=== PATIENT | male | born 1970 | race Caucasian/White ===

== ENCOUNTER 2020-09-06 06:44 | Inpatient (IN) ==
[2020-09-06] MEDS ORDERED: Aspirin 81 MG TAB.CHEW PO ONE (06:49)
[2020-09-06 07:10] LABS: Basophils % 0.4 %; Eosinophils # 0.2 K/mcL (0.0-0.6); Eosinophils % 1.9 %; Hematocrit 43.6 % (37.5-50.1); Hemoglobin 13.8 g/dL (12.9-16.9); Immature Granulocytes % 0.3 % (0-4); Lymphocytes % 25.7 %; Mean Corpuscular HGB Conc 31.7 g/dL (31.6-35.5); Mean Corpuscular Hemoglobin 26.5 pg (28.0-33.3); Mean Corpuscular Volume 83.8 fL (83.0-100.0); Mean Platelet Volume 8.7 fL (9.4-12.4); Monocytes # 0.6 K/mcL (0.0-1.3); Monocytes % 8.3 %; Neutrophils # 4.9 K/mcL (1.6-8.9); Platelet Count 337 K/mcL (140-400); Red Cell Distribution Width 13.4 % (11.5-14.5); Segmented Neutrophils % 63.4 %; White Blood Count 7.8 K/mcL (4.3-11.1)
[2020-09-06 07:17] LABS: INR 1.1; Prothrombin Time 12.4 Seconds (9.4-12.1)
[2020-09-06 07:39] LABS: BUN/Creatinine Ratio 13 (6-26); Blood Urea Nitrogen 14 mg/dL (6-20); Calcium 8.7 mg/dL (8.6-10.3); Carbon Dioxide 26 mEq/L (23-29); Chloride 105 mEq/L (98-107); Glucose 129 mg/dL (70-105); Osmolality,Calculated 286 (280-300); Potassium 3.6 mEq/L (3.5-5.1); Sodium 137 mEq/L (136-145); Troponin I 0.22 ng/mL (< 0.04); eGFR For African Americans > 60 (> 60); eGFR For Non-African Americans > 60 (> 60)
[2020-09-06] MEDS ORDERED: *HR* Heparin 5,000 UNIT/ML VIAL IVP PRN ×2 (07:44)
[2020-09-06] MEDS ORDERED: *HR* Heparin 5,000 UNIT/ML VIAL IVP ONE (07:44)
[2020-09-06] MEDS ORDERED: Naloxone 0.4 MG/ML INJ IVP PRN (08:04)
[2020-09-06] MEDS ORDERED: Ondansetron 4 MG/2 ML VIAL IVP PRN (08:04)
[2020-09-06] MEDS ORDERED: Perflutren Lipid Microsphere 1.3 ML in 0.9 % Sodium Chloride 8.7 ML IVP PRN (08:08)
[2020-09-06] MEDS: Heparin 25,000UNIT/250ML 1/2NS 25,000 UNIT/250 ML IV.SOLN IVC SCH (08:19)
[2020-09-06] MEDS ORDERED: *HR* Labetalol 20 MG/4 ML SYRINGE IVP PRN (08:38)
[2020-09-06] MEDS ORDERED: Propranolol LA (24 HR) 60 MG CAP.SA.24H PO SCH (10:15)
[2020-09-06] MEDS ORDERED: Valsartan 80 MG TABLET PO SCH (10:15)
[2020-09-06] MEDS: Aspirin 81 MG TAB.CHEW PO SCH (11:40)
[2020-09-06] MEDS ORDERED: RIZATRIPTAN BENZOATE 10 MG PO PRN (11:41)
[2020-09-06] MEDS: Valsartan 80 MG TABLET PO SCH ×2 (11:49→21:18)
[2020-09-06] MEDS: Simethicone 80 MG TAB.CHEW PO PRN (12:35)
[2020-09-06] MEDS: Acetaminophen 325 MG TABLET PO PRN (21:18)
[2020-09-06] MEDS: Fluticasone Propionate Nasal 50 MCG/SPRAY BOTTLE NS SCH (21:20)
[2020-09-07] MEDS: Heparin 25,000UNIT/250ML 1/2NS 25,000 UNIT/250 ML IV.SOLN IVC SCH ×2 (01:53→21:01)
[2020-09-07 03:19] LABS: Basophils % 0.4 %; Eosinophils # 0.1 K/mcL (0.0-0.6); Eosinophils % 0.9 %; Hematocrit 43.5 % (37.5-50.1); Hemoglobin 13.8 g/dL (12.9-16.9); Immature Granulocytes % 0.4 % (0-4); Lymphocytes # 1.7 K/mcL (0.6-4.6); Lymphocytes % 25.5 %; Mean Corpuscular HGB Conc 31.7 g/dL (31.6-35.5); Mean Corpuscular Hemoglobin 26.4 pg (28.0-33.3); Mean Corpuscular Volume 83.3 fL (83.0-100.0); Mean Platelet Volume 8.5 fL (9.4-12.4); Monocytes # 0.4 K/mcL (0.0-1.3); Monocytes % 5.9 %; Neutrophils # 4.5 K/mcL (1.6-8.9); Platelet Count 286 K/mcL (140-400); Red Blood Count 5.22 M/mcL (4.19-5.50); Red Cell Distribution Width 13.5 % (11.5-14.5); Segmented Neutrophils % 66.9 %; White Blood Count 6.8 K/mcL (4.3-11.1)
[2020-09-07 03:42] LABS: BUN/Creatinine Ratio 13 (6-26); Blood Urea Nitrogen 14 mg/dL (6-20); Calcium 8.9 mg/dL (8.6-10.3); Carbon Dioxide 27 mEq/L (23-29); Chloride 103 mEq/L (98-107); Chol/HDL Ratio 4.6 (0-4.9); Cholesterol 181 mg/dL (< 200); Glucose 113 mg/dL (70-105); HDL Cholesterol 39 mg/dL (40-59); LDL Cholesterol,Calculated 112 mg/dL (< 100); Magnesium 1.9 mg/dL (1.6-2.6); Osmolality,Calculated 285 (280-300); Potassium 3.7 mEq/L (3.5-5.1); Sodium 137 mEq/L (136-145); Triglycerides 152 mg/dL (< 150); eGFR For African Americans > 60 (> 60); eGFR For Non-African Americans > 60 (> 60)
[2020-09-07 05:18] LABS: Estimated Average Glucose 146 mg/dl; Hemoglobin A1C 6.7 %
[2020-09-07] MEDS: Valsartan 80 MG TABLET PO SCH ×2 (08:06→21:01)
[2020-09-07] MEDS: Aspirin 81 MG TAB.CHEW PO SCH (08:06)
[2020-09-07] MEDS: Fluticasone Propionate Nasal 50 MCG/SPRAY BOTTLE NS SCH ×2 (08:07→21:03)
[2020-09-07] MEDS: Simethicone 80 MG TAB.CHEW PO PRN ×3 (08:14→17:28)
[2020-09-07] MEDS: carvediloL 6.25 MG TABLET PO SCH ×2 (10:39→17:28)
[2020-09-08] MEDS: Acetaminophen 325 MG TABLET PO PRN (04:37)
[2020-09-08 05:44] LABS: Hemoglobin 14.4 g/dL (12.9-16.9); Mean Corpuscular HGB Conc 31.3 g/dL (31.6-35.5); Mean Corpuscular Hemoglobin 26.3 pg (28.0-33.3); Mean Corpuscular Volume 83.9 fL (83.0-100.0); Mean Platelet Volume 9.5 fL (9.4-12.4); Platelet Count 335 K/mcL (140-400); Red Blood Count 5.48 M/mcL (4.19-5.50); Red Cell Distribution Width 13.7 % (11.5-14.5); White Blood Count 9.3 K/mcL (4.3-11.1)
[2020-09-08 06:10] LABS: BUN/Creatinine Ratio 13 (6-26); Blood Urea Nitrogen 14 mg/dL (6-20); Calcium 9.1 mg/dL (8.6-10.3); Carbon Dioxide 27 mEq/L (23-29); Chloride 100 mEq/L (98-107); Glucose 128 mg/dL (70-105); Osmolality,Calculated 286 (280-300); Potassium 3.4 mEq/L (3.5-5.1); Sodium 137 mEq/L (136-145); eGFR For African Americans > 60 (> 60); eGFR For Non-African Americans > 60 (> 60)
[2020-09-08] MEDS: Aspirin 81 MG TAB.CHEW PO SCH (07:56)
[2020-09-08] MEDS: carvediloL 6.25 MG TABLET PO SCH ×2 (07:56→17:32)
[2020-09-08] MEDS: Valsartan 80 MG TABLET PO SCH ×2 (07:56→19:45)
[2020-09-08] MEDS: Fluticasone Propionate Nasal 50 MCG/SPRAY BOTTLE NS SCH ×2 (08:39→19:53)
[2020-09-08] MEDS: Heparin 25,000UNIT/250ML 1/2NS 25,000 UNIT/250 ML IV.SOLN IVC SCH (13:56)
[2020-09-08] MEDS ORDERED: Heparin 1,000 UNITS/500 mL 500 ML ONE (16:06)
[2020-09-08] MEDS ORDERED: 0.9 % Sodium Chloride 2,000 ML ONE (16:06)
[2020-09-08] MEDS ORDERED: ISOVUE-370 200 ML INFUS..BTL ONE (16:06)
[2020-09-08] MEDS ORDERED: *HR* Heparin 10,000 UNIT/10 ML VIAL ONE (16:06)
[2020-09-08] MEDS ORDERED: Nitroglycerin 1,000 MCG/10 ML VIAL IV ONE (16:06)
[2020-09-08] MEDS ORDERED: *HR* Midazolam HCl 2 MG/2 ML VIAL ONE (16:44)
[2020-09-08] MEDS ORDERED: *HR* FentaNYL (PF) 100 MCG/2 ML VIAL ONE (16:44)
[2020-09-09 03:31] LABS: Hematocrit 43.1 % (37.5-50.1); Hemoglobin 13.6 g/dL (12.9-16.9); Mean Corpuscular HGB Conc 31.6 g/dL (31.6-35.5); Mean Corpuscular Hemoglobin 26.4 pg (28.0-33.3); Mean Corpuscular Volume 83.7 fL (83.0-100.0); Platelet Count 314 K/mcL (140-400); Red Blood Count 5.15 M/mcL (4.19-5.50); Red Cell Distribution Width 13.9 % (11.5-14.5); White Blood Count 7.9 K/mcL (4.3-11.1)
[2020-09-09 03:51] LABS: BUN/Creatinine Ratio 14 (6-26); Blood Urea Nitrogen 15 mg/dL (6-20); Calcium 9.1 mg/dL (8.6-10.3); Carbon Dioxide 28 mEq/L (23-29); Chloride 103 mEq/L (98-107); Glucose 95 mg/dL (70-105); Osmolality,Calculated 283 (280-300); Potassium 4.3 mEq/L (3.5-5.1); Sodium 136 mEq/L (136-145); eGFR For African Americans > 60 (> 60); eGFR For Non-African Americans > 60 (> 60)
[2020-09-09] MEDS: Aspirin 81 MG TAB.CHEW PO SCH (10:04)
[2020-09-09] MEDS: Valsartan 80 MG TABLET PO SCH (10:04)
[2020-09-09] MEDS: carvediloL 6.25 MG TABLET PO SCH (10:04)
[2020-09-09] MEDS: Fluticasone Propionate Nasal 50 MCG/SPRAY BOTTLE NS SCH (10:07)
[2020-09-09 11:01] VITALS: BP 118/84
== END 2020-09-09 12:31 | disposition home or self-care (01) | DRG 282 ==
LOC: EMEROOARM 06:44 → 2ANU 06:44 → SUATTDRO 08:40 → 2ANU 09:11
PROVIDERS: ADMIT Family Medicine; ATTEND Internal Medicine

== ENCOUNTER 2020-09-24 19:31 | Inpatient (IN) ==
[2020-09-24] MEDS ORDERED: Dexamethasone 4 MG/ML VIAL IVP ONE (19:54)
[2020-09-24] MEDS ORDERED: Isovue-370 500 ML BOTTLE IVP ONE (19:54)
[2020-09-24 20:18] LABS: Basophils % 0.3 %; Eosinophils % 0.4 %; Hematocrit 48.9 % (37.5-50.1); Immature Granulocytes % 0.4 % (0-4); Lymphocytes # 2.2 K/mcL (0.6-4.6); Lymphocytes % 20.6 %; Mean Corpuscular HGB Conc 32.7 g/dL (31.6-35.5); Mean Corpuscular Hemoglobin 27.6 pg (28.0-33.3); Mean Corpuscular Volume 84.5 fL (83.0-100.0); Mean Platelet Volume 10.1 fL (9.4-12.4); Monocytes # 0.6 K/mcL (0.0-1.3); Monocytes % 5.2 %; Neutrophils # 7.8 K/mcL (1.6-8.9); Nucleated Red Blood Cells 0.2 /100 WBC (0); Platelet Count 426 K/mcL (140-400); Red Blood Count 5.79 M/mcL (4.19-5.50); Segmented Neutrophils % 73.1 %; White Blood Count 10.7 K/mcL (4.3-11.1)
[2020-09-24 20:20] LABS: VBG HCO3 29 mEq/L (21-27); VBG PCO2 48 mmHg (41-51); VBG PH 7.39 pH Units (7.32-7.42); VBG PO2 43 mmHg (25-50)
[2020-09-24 20:38] LABS: BUN/Creatinine Ratio 17 (6-26); Blood Urea Nitrogen 18 mg/dL (6-20); Calcium 8.4 mg/dL (8.6-10.3); Carbon Dioxide 28 mEq/L (23-29); Chloride 93 mEq/L (98-107); Glucose 163 mg/dL (70-105); Osmolality,Calculated 281 (280-300); Potassium 3.4 mEq/L (3.5-5.1); Sodium 133 mEq/L (136-145); eGFR For African Americans > 60 (> 60); eGFR For Non-African Americans > 60 (> 60)
[2020-09-24 20:42] LABS: Troponin I 0.15 ng/mL (< 0.04)
[2020-09-24] MEDS ORDERED: Acetaminophen 325 MG TABLET PO PRN (22:06)
[2020-09-24] MEDS ORDERED: Ondansetron 4 MG/2 ML VIAL IVP PRN (22:06)
[2020-09-24] MEDS ORDERED: Naloxone 0.4 MG/ML INJ IVP PRN (22:06)
[2020-09-24 22:37] LABS: Alanine Aminotransferase 58 Units/L (7-52); Albumin 3.4 g/dL (3.5-5.7); Albumin/Globulin Ratio 0.7 (1.1-2.2); Alkaline Phosphatase 59 Units/L (34-104); Aspartate Amino Transferase 46 Units/L (13-39); Bilirubin,Direct 0.8 mg/dL (0.0-0.2); Bilirubin,Indirect 1.2 mg/dL (0.0-1.0); C-Reactive Protein 82 mg/L (Less than 10); Globulin 4.7 g/dL (2.4-3.5); Magnesium 2.9 mg/dL (1.6-2.6); Phosphorous 2.8 mg/dL (2.7-4.5); Total Protein 8.1 g/dL (6.4-8.9); Transferrin 174 mg/dL (203-362)
[2020-09-24 22:44] LABS: INR 1.2
[2020-09-24 22:46] LABS: Activated Partial Thrombo Time 25.6 Seconds (26.0-36.0)
[2020-09-24 22:54] LABS: Ferritin 923 ng/mL (20-250)
[2020-09-24] MEDS: Ipratropium 1 PUFF INHALER IH SCH (22:54)
[2020-09-24] MEDS ORDERED: Remdesivir 200 MG in 0.9 % Sodium Chloride 100 ML IVPB ONE (23:45)
[2020-09-24] MEDS ORDERED: Furosemide 20 MG/2 ML VIAL IVP ONE (23:52)
[2020-09-25] MEDS ORDERED: D5% in Water 1,000 ML IVC PRN (00:15)
[2020-09-25] MEDS ORDERED: Dextrose Gel 15 GM/37.5 ML TUBE PO PRN ×2 (00:15)
[2020-09-25] MEDS ORDERED: *HR* Dextrose 50 % in Water (Vial) 50 ML VIAL IVP PRN (00:15)
[2020-09-25 00:32] LABS: Basophils % 0.2 %; Hematocrit 45.8 % (37.5-50.1); Hemoglobin 15.1 g/dL (12.9-16.9); Immature Granulocytes % 0.3 % (0-4); Lymphocytes # 0.7 K/mcL (0.6-4.6); Lymphocytes % 7.4 %; Mean Corpuscular Hemoglobin 26.9 pg (28.0-33.3); Mean Corpuscular Volume 81.6 fL (83.0-100.0); Mean Platelet Volume 9.4 fL (9.4-12.4); Monocytes # 0.3 K/mcL (0.0-1.3); Monocytes % 3.2 %; Platelet Count 399 K/mcL (140-400); Red Blood Count 5.61 M/mcL (4.19-5.50); Red Cell Distribution Width 14.1 % (11.5-14.5); Segmented Neutrophils % 88.9 %; White Blood Count 9.3 K/mcL (4.3-11.1)
[2020-09-25 00:33] LABS: Neutrophils # 8.3 K/mcL (1.6-8.9)
[2020-09-25 00:48] LABS: Alanine Aminotransferase 53 Units/L (7-52); Albumin 3.2 g/dL (3.5-5.7); Albumin/Globulin Ratio 0.7 (1.1-2.2); Alkaline Phosphatase 53 Units/L (34-104); Aspartate Amino Transferase 40 Units/L (13-39); BUN/Creatinine Ratio 19 (6-26); Bilirubin,Total 1.9 mg/dL (0.3-1.0); Blood Urea Nitrogen 18 mg/dL (6-20); Carbon Dioxide 26 mEq/L (23-29); Chloride 95 mEq/L (98-107); Globulin 4.3 g/dL (2.4-3.5); Glucose 178 mg/dL (70-105); Osmolality,Calculated 278 (280-300); Potassium 3.9 mEq/L (3.5-5.1); Sodium 131 mEq/L (136-145); Total Protein 7.5 g/dL (6.4-8.9); eGFR For African Americans > 60 (> 60); eGFR For Non-African Americans > 60 (> 60)
[2020-09-25 00:53] LABS: Troponin I 0.14 ng/mL (< 0.04)
[2020-09-25 01:23] LABS: C-Reactive Protein 81 mg/L (Less than 10); Transferrin 167 mg/dL (203-362)
[2020-09-25 01:38] LABS: Ferritin 822 ng/mL (20-250)
[2020-09-25 02:21] LABS: ABG Base Excess 2 mEq/L (-2 to 3); ABG HCO3 27 mEq/L (21-27); ABG Oxygen Saturation 96 % (95-98); ABG PCO2 40 mmHg (35-45); ABG PH 7.44 pH Units (7.32-7.45); ABG PO2 77 mmHg (85-104); ABG TCO2 28 mEq/L (20-26)
[2020-09-25 03:14] LABS: Bilirubin,Urine Negative (Negative); Blood,Urine Negative (Negative); Clarity,Urine Clear (Clear); Color,Urine Yellow (Yellow); Glucose,Urine (UA) 50 mg/dL (Normal); Ketones,Urine 10 mg/dL (Negative); Leukocyte Esterase,Urine Negative (Negative); Mucus,Urine Few per lpf (None-Few); Nitrite,Urine Negative (Negative); Protein,Urine Trace mg/dL (Neg-Trace); RBC,Urine 0-3 per hpf (0-3); Specific Gravity,Urine > 1.030 (1.010-1.025); Squamous Epithelial Cell,Urine Few per hpf (None-Few); WBC,Urine 0-3 per hpf (0-3)
[2020-09-25] MEDS: Ipratropium 1 PUFF INHALER IH SCH ×6 (04:23→23:45)
[2020-09-25 05:37] LABS: INR 1.2; Prothrombin Time 14.2 Seconds (9.4-12.1)
[2020-09-25] MEDS: *HR* Enoxaparin 40 MG/0.4 ML SYRINGE SQ SCH (06:25)
[2020-09-25] MEDS: Dexamethasone Sodium Phos/PF 10 MG/ML VIAL IVP SCH (08:02)
[2020-09-25] MEDS: Insulin LISPRO 300 UNITS/3 ML VIAL SUBQ SCH ×3 (08:03→16:35)
[2020-09-25] MEDS ORDERED: Dexamethasone Sodium Phos/PF 10 MG/ML VIAL IVP SCH (09:00)
[2020-09-25] MEDS ORDERED: Dexamethasone 4 MG/ML VIAL IVP SCH (09:00)
[2020-09-25] MEDS: Aspirin 81 MG TAB.CHEW PO SCH (12:02)
[2020-09-25] MEDS: Metoprolol XL (24 HR) Succ 25 MG TAB.ER.24H PO SCH (16:34)
[2020-09-25] MEDS ORDERED: Furosemide 20 MG/2 ML VIAL IVP ONE (17:01)
[2020-09-25] MEDS ORDERED: Insulin LISPRO 300 UNITS/3 ML VIAL SUBQ SCH (21:00)
[2020-09-25] MEDS: Remdesivir 100 MG in 0.9 % Sodium Chloride 100 ML IVPB SCH (22:08)
[2020-09-26] MEDS: Ipratropium 1 PUFF INHALER IH SCH ×5 (03:55→20:03)
[2020-09-26] MEDS: *HR* Enoxaparin 40 MG/0.4 ML SYRINGE SQ SCH (05:57)
[2020-09-26 06:09] LABS: Hematocrit 47.1 % (37.5-50.1); Hemoglobin 15.1 g/dL (12.9-16.9); Mean Corpuscular HGB Conc 32.1 g/dL (31.6-35.5); Mean Corpuscular Hemoglobin 27.3 pg (28.0-33.3); Mean Platelet Volume 10.1 fL (9.4-12.4); Platelet Count 543 K/mcL (140-400); Red Blood Count 5.54 M/mcL (4.19-5.50); Red Cell Distribution Width 14.4 % (11.5-14.5); White Blood Count 10.4 K/mcL (4.3-11.1)
[2020-09-26 06:19] LABS: Alanine Aminotransferase 63 Units/L (7-52); Albumin 3.2 g/dL (3.5-5.7); Albumin/Globulin Ratio 0.7 (1.1-2.2); Alkaline Phosphatase 52 Units/L (34-104); Aspartate Amino Transferase 42 Units/L (13-39); BUN/Creatinine Ratio 27 (6-26); Bilirubin,Direct 0.4 mg/dL (0.0-0.2); Bilirubin,Indirect 0.9 mg/dL (0.0-1.0); Bilirubin,Total 1.3 mg/dL (0.3-1.0); Blood Urea Nitrogen 28 mg/dL (6-20); Calcium 8.7 mg/dL (8.6-10.3); Carbon Dioxide 31 mEq/L (23-29); Chloride 96 mEq/L (98-107); Globulin 4.5 g/dL (2.4-3.5); Glucose 223 mg/dL (70-105); Osmolality,Calculated 292 (280-300); Potassium 3.8 mEq/L (3.5-5.1); Sodium 135 mEq/L (136-145); Total Protein 7.7 g/dL (6.4-8.9); eGFR For African Americans > 60 (> 60); eGFR For Non-African Americans > 60 (> 60)
[2020-09-26] MEDS ORDERED: hydrOXYzine pamoate 25 MG CAPSULE PO PRN (06:19)
[2020-09-26] MEDS ORDERED: Haloperidol Lactate 5 MG/ML VIAL IVP ONE (06:39)
[2020-09-26] MEDS: Aspirin 81 MG TAB.CHEW PO SCH (07:45)
[2020-09-26] MEDS: Metoprolol XL (24 HR) Succ 25 MG TAB.ER.24H PO SCH (07:45)
[2020-09-26] MEDS: Insulin LISPRO 300 UNITS/3 ML VIAL SUBQ SCH ×4 (07:51→20:43)
[2020-09-26] MEDS: Dexamethasone Sodium Phos/PF 10 MG/ML VIAL IVP SCH (07:55)
[2020-09-26] MEDS: Remdesivir 100 MG in 0.9 % Sodium Chloride 100 ML IVPB SCH (21:57)
[2020-09-27] MEDS: Ipratropium 1 PUFF INHALER IH SCH ×7 (00:08→23:04)
[2020-09-27 03:23] LABS: Hematocrit 42.9 % (37.5-50.1); Hemoglobin 14.1 g/dL (12.9-16.9); Mean Corpuscular HGB Conc 32.9 g/dL (31.6-35.5); Mean Platelet Volume 10.1 fL (9.4-12.4); Platelet Count 540 K/mcL (140-400); Red Blood Count 5.23 M/mcL (4.19-5.50); Red Cell Distribution Width 13.9 % (11.5-14.5); White Blood Count 11.5 K/mcL (4.3-11.1)
[2020-09-27] MEDS: *HR* Enoxaparin 40 MG/0.4 ML SYRINGE SQ SCH (05:42)
[2020-09-27 06:07] LABS: Alanine Aminotransferase 96 Units/L (7-52); Albumin 3.1 g/dL (3.5-5.7); Albumin/Globulin Ratio 0.8 (1.1-2.2); Alkaline Phosphatase 46 Units/L (34-104); Aspartate Amino Transferase 65 Units/L (13-39); BUN/Creatinine Ratio 31 (6-26); Bilirubin,Direct 0.3 mg/dL (0.0-0.2); Bilirubin,Total 1.3 mg/dL (0.3-1.0); Blood Urea Nitrogen 29 mg/dL (6-20); Calcium 8.7 mg/dL (8.6-10.3); Carbon Dioxide 30 mEq/L (23-29); Chloride 96 mEq/L (98-107); Globulin 4.1 g/dL (2.4-3.5); Glucose 170 mg/dL (70-105); Osmolality,Calculated 288 (280-300); Potassium 3.6 mEq/L (3.5-5.1); Sodium 134 mEq/L (136-145); Total Protein 7.2 g/dL (6.4-8.9); eGFR For African Americans > 60 (> 60); eGFR For Non-African Americans > 60 (> 60)
[2020-09-27] MEDS: Metoprolol XL (24 HR) Succ 25 MG TAB.ER.24H PO SCH (07:48)
[2020-09-27] MEDS: Aspirin 81 MG TAB.CHEW PO SCH (07:48)
[2020-09-27] MEDS: Dexamethasone Sodium Phos/PF 10 MG/ML VIAL IVP SCH (07:49)
[2020-09-27] MEDS: Insulin LISPRO 300 UNITS/3 ML VIAL SUBQ SCH ×4 (07:49→20:48)
[2020-09-27] MEDS: Remdesivir 100 MG in 0.9 % Sodium Chloride 100 ML IVPB SCH (21:05)
[2020-09-28] MEDS: Ipratropium 1 PUFF INHALER IH SCH ×5 (03:55→19:45)
[2020-09-28 04:28] LABS: Hematocrit 40.9 % (37.5-50.1); Hemoglobin 13.2 g/dL (12.9-16.9); Mean Corpuscular HGB Conc 32.3 g/dL (31.6-35.5); Mean Corpuscular Volume 83.8 fL (83.0-100.0); Mean Platelet Volume 9.2 fL (9.4-12.4); Platelet Count 515 K/mcL (140-400); Red Blood Count 4.88 M/mcL (4.19-5.50); White Blood Count 10.6 K/mcL (4.3-11.1)
[2020-09-28 04:49] LABS: Alanine Aminotransferase 177 Units/L (7-52); Albumin/Globulin Ratio 0.8 (1.1-2.2); Alkaline Phosphatase 41 Units/L (34-104); Aspartate Amino Transferase 117 Units/L (13-39); BUN/Creatinine Ratio 31 (6-26); Bilirubin,Direct 0.4 mg/dL (0.0-0.2); Bilirubin,Indirect 0.7 mg/dL (0.0-1.0); Bilirubin,Total 1.1 mg/dL (0.3-1.0); Blood Urea Nitrogen 24 mg/dL (6-20); Calcium 8.6 mg/dL (8.6-10.3); Carbon Dioxide 28 mEq/L (23-29); Chloride 98 mEq/L (98-107); Glucose 156 mg/dL (70-105); Osmolality,Calculated 283 (280-300); Potassium 3.7 mEq/L (3.5-5.1); Sodium 133 mEq/L (136-145); eGFR For African Americans > 60 (> 60); eGFR For Non-African Americans > 60 (> 60)
[2020-09-28] MEDS: *HR* Enoxaparin 40 MG/0.4 ML SYRINGE SQ SCH (06:03)
[2020-09-28] MEDS: Aspirin 81 MG TAB.CHEW PO SCH (07:49)
[2020-09-28] MEDS: Dexamethasone Sodium Phos/PF 10 MG/ML VIAL IVP SCH (07:49)
[2020-09-28] MEDS: Metoprolol XL (24 HR) Succ 25 MG TAB.ER.24H PO SCH (07:49)
[2020-09-28] MEDS: Insulin LISPRO 300 UNITS/3 ML VIAL SUBQ SCH ×4 (07:50→20:49)
[2020-09-28] MEDS: Remdesivir 100 MG in 0.9 % Sodium Chloride 100 ML IVPB SCH (20:50)
[2020-09-29] MEDS: Ipratropium 1 PUFF INHALER IH SCH ×7 (00:30→23:26)
[2020-09-29] MEDS: *HR* Enoxaparin 40 MG/0.4 ML SYRINGE SQ SCH (05:38)
[2020-09-29] MEDS: Metoprolol XL (24 HR) Succ 25 MG TAB.ER.24H PO SCH (08:55)
[2020-09-29] MEDS: Dexamethasone Sodium Phos/PF 10 MG/ML VIAL IVP SCH (08:56)
[2020-09-29] MEDS: Aspirin 81 MG TAB.CHEW PO SCH (08:56)
[2020-09-29] MEDS: Insulin LISPRO 300 UNITS/3 ML VIAL SUBQ SCH ×4 (09:05→22:06)
[2020-09-30] MEDS: Ipratropium 1 PUFF INHALER IH SCH ×6 (03:23→23:36)
[2020-09-30 03:41] LABS: Alanine Aminotransferase 207 Units/L (7-52); Albumin/Globulin Ratio 0.8 (1.1-2.2); Alkaline Phosphatase 39 Units/L (34-104); Aspartate Amino Transferase 86 Units/L (13-39); BUN/Creatinine Ratio 29 (6-26); Bilirubin,Direct 0.2 mg/dL (0.0-0.2); Bilirubin,Indirect 0.6 mg/dL (0.0-1.0); Bilirubin,Total 0.8 mg/dL (0.3-1.0); Blood Urea Nitrogen 22 mg/dL (6-20); Calcium 8.7 mg/dL (8.6-10.3); Carbon Dioxide 24 mEq/L (23-29); Chloride 100 mEq/L (98-107); Globulin 3.9 g/dL (2.4-3.5); Glucose 137 mg/dL (70-105); Magnesium 2.3 mg/dL (1.6-2.6); Osmolality,Calculated 277 (280-300); Potassium 4.6 mEq/L (3.5-5.1); Sodium 131 mEq/L (136-145); Total Protein 6.9 g/dL (6.4-8.9); eGFR For African Americans > 60 (> 60); eGFR For Non-African Americans > 60 (> 60)
[2020-09-30 05:40] LABS: Hematocrit 39.6 % (37.5-50.1); Hemoglobin 13.2 g/dL (12.9-16.9); Mean Corpuscular HGB Conc 33.3 g/dL (31.6-35.5); Mean Corpuscular Hemoglobin 28.6 pg (28.0-33.3); Mean Corpuscular Volume 85.7 fL (83.0-100.0); Mean Platelet Volume 9.1 fL (9.4-12.4); Platelet Count 542 K/mcL (140-400); Red Blood Count 4.62 M/mcL (4.19-5.50); White Blood Count 13.8 K/mcL (4.3-11.1)
[2020-09-30] MEDS: *HR* Enoxaparin 40 MG/0.4 ML SYRINGE SQ SCH (06:01)
[2020-09-30] MEDS: Aspirin 81 MG TAB.CHEW PO SCH (08:23)
[2020-09-30] MEDS: Metoprolol XL (24 HR) Succ 25 MG TAB.ER.24H PO SCH (08:23)
[2020-09-30] MEDS: Insulin LISPRO 300 UNITS/3 ML VIAL SUBQ SCH ×4 (08:25→20:07)
[2020-09-30] MEDS: Dexamethasone Sodium Phos/PF 10 MG/ML VIAL IVP SCH (08:26)
[2020-09-30] MEDS ORDERED: CLEAR EYES NATURAL TEARS 15 ML BOTTLE BOTH EYES PRN (09:30)
[2020-10-01] MEDS: Ipratropium 1 PUFF INHALER IH SCH ×5 (03:40→19:12)
[2020-10-01] MEDS: *HR* Enoxaparin 40 MG/0.4 ML SYRINGE SQ SCH (06:03)
[2020-10-01] MEDS: Metoprolol XL (24 HR) Succ 25 MG TAB.ER.24H PO SCH (08:19)
[2020-10-01] MEDS: Aspirin 81 MG TAB.CHEW PO SCH (08:19)
[2020-10-01] MEDS: Dexamethasone Sodium Phos/PF 10 MG/ML VIAL IVP SCH (08:23)
[2020-10-01] MEDS: Insulin LISPRO 300 UNITS/3 ML VIAL SUBQ SCH ×4 (08:23→20:17)
[2020-10-02] MEDS: Ipratropium 1 PUFF INHALER IH SCH ×7 (00:04→22:59)
[2020-10-02 02:13] LABS: Basophils # 0.1 K/mcL (0.0-0.2); Basophils % 0.7 %; Eosinophils % 0.3 %; Hematocrit 41.7 % (37.5-50.1); Immature Granulocytes % 5.6 % (0-4); Lymphocytes # 2.7 K/mcL (0.6-4.6); Lymphocytes % 18.6 %; Mean Corpuscular HGB Conc 31.2 g/dL (31.6-35.5); Mean Corpuscular Hemoglobin 26.5 pg (28.0-33.3); Mean Corpuscular Volume 85.1 fL (83.0-100.0); Monocytes % 7.1 %; Nucleated Red Blood Cells 0.1 /100 WBC (0); Platelet Count 529 K/mcL (140-400); Red Cell Distribution Width 14.1 % (11.5-14.5); Segmented Neutrophils % 67.7 %; White Blood Count 14.7 K/mcL (4.3-11.1)
[2020-10-02 02:34] LABS: BUN/Creatinine Ratio 24 (6-26); Blood Urea Nitrogen 22 mg/dL (6-20); Calcium 8.7 mg/dL (8.6-10.3); Carbon Dioxide 29 mEq/L (23-29); Chloride 99 mEq/L (98-107); Glucose 155 mg/dL (70-105); Magnesium 2.1 mg/dL (1.6-2.6); Osmolality,Calculated 284 (280-300); Sodium 134 mEq/L (136-145); eGFR For African Americans > 60 (> 60); eGFR For Non-African Americans > 60 (> 60)
[2020-10-02 02:35] LABS: Albumin/Globulin Ratio 0.9 (1.1-2.2); Bilirubin,Direct 0.2 mg/dL (0.0-0.2); Bilirubin,Indirect 0.5 mg/dL (0.0-1.0); Bilirubin,Total 0.7 mg/dL (0.3-1.0); Globulin 3.5 g/dL (2.4-3.5); Total Protein 6.5 g/dL (6.4-8.9)
[2020-10-02 02:41] LABS: Platelet Estimate Increased (Normal)
[2020-10-02] MEDS: *HR* Enoxaparin 40 MG/0.4 ML SYRINGE SQ SCH (06:06)
[2020-10-02] MEDS: Aspirin 81 MG TAB.CHEW PO SCH (08:15)
[2020-10-02] MEDS: Metoprolol XL (24 HR) Succ 25 MG TAB.ER.24H PO SCH (08:15)
[2020-10-02] MEDS: Dexamethasone Sodium Phos/PF 10 MG/ML VIAL IVP SCH (08:16)
[2020-10-02] MEDS: Insulin LISPRO 300 UNITS/3 ML VIAL SUBQ SCH ×4 (08:17→20:45)
[2020-10-03] MEDS: Ipratropium 1 PUFF INHALER IH SCH ×4 (03:27→15:24)
[2020-10-03 04:56] LABS: Basophils # 0.1 K/mcL (0.0-0.2); Basophils % 0.5 %; Eosinophils # 0.1 K/mcL (0.0-0.6); Eosinophils % 0.7 %; Hematocrit 40.3 % (37.5-50.1); Hemoglobin 12.8 g/dL (12.9-16.9); Immature Granulocytes % 4.4 % (0-4); Lymphocytes # 3.4 K/mcL (0.6-4.6); Lymphocytes % 20.8 %; Mean Corpuscular HGB Conc 31.8 g/dL (31.6-35.5); Mean Corpuscular Hemoglobin 26.6 pg (28.0-33.3); Mean Corpuscular Volume 83.6 fL (83.0-100.0); Mean Platelet Volume 8.7 fL (9.4-12.4); Monocytes # 1.1 K/mcL (0.0-1.3); Monocytes % 6.7 %; Platelet Count 482 K/mcL (140-400); Red Blood Count 4.82 M/mcL (4.19-5.50); Red Cell Distribution Width 14.3 % (11.5-14.5); Segmented Neutrophils % 66.9 %; White Blood Count 16.4 K/mcL (4.3-11.1)
[2020-10-03 05:06] LABS: BUN/Creatinine Ratio 23 (6-26); Blood Urea Nitrogen 19 mg/dL (6-20); Calcium 8.5 mg/dL (8.6-10.3); Carbon Dioxide 31 mEq/L (23-29); Chloride 99 mEq/L (98-107); Glucose 96 mg/dL (70-105); Osmolality,Calculated 284 (280-300); Phosphorous 4.2 mg/dL (2.7-4.5); Sodium 136 mEq/L (136-145); eGFR For African Americans > 60 (> 60); eGFR For Non-African Americans > 60 (> 60)
[2020-10-03] MEDS: *HR* Enoxaparin 40 MG/0.4 ML SYRINGE SQ SCH (05:34)
[2020-10-03] MEDS: Insulin LISPRO 300 UNITS/3 ML VIAL SUBQ SCH ×2 (09:43→12:04)
[2020-10-03] MEDS: Aspirin 81 MG TAB.CHEW PO SCH (09:48)
[2020-10-03] MEDS: Dexamethasone Sodium Phos/PF 10 MG/ML VIAL IVP SCH (09:48)
[2020-10-03] MEDS: Metoprolol XL (24 HR) Succ 25 MG TAB.ER.24H PO SCH (09:48)
[2020-10-03 12:04] VITALS: BP 122/84
== END 2020-10-03 15:25 | disposition home or self-care (01) | DRG 871 ==
LOC: EMEROOARM 19:31 → 2NENU 19:31 → SUATTDRO 22:09 → 2NENU 23:06 → SUATTDRO 09-25 07:55
PROVIDERS: ADMIT Internal Medicine; ATTEND Student in an Organized Health Care Education/Training Program

== ENCOUNTER 2020-10-31 12:11 | Observation (INO) ==
[2020-10-31 13:12] LABS: Basophils % 0.4 %; Eosinophils # 0.1 K/mcL (0.0-0.6); Eosinophils % 1.4 %; Hematocrit 39.2 % (37.5-50.1); Hemoglobin 12.3 g/dL (12.9-16.9); Immature Granulocytes % 0.9 % (0-4); Lymphocytes # 2.4 K/mcL (0.6-4.6); Lymphocytes % 30.1 %; Mean Corpuscular HGB Conc 31.4 g/dL (31.6-35.5); Mean Corpuscular Volume 86.2 fL (83.0-100.0); Mean Platelet Volume 8.9 fL (9.4-12.4); Monocytes # 0.9 K/mcL (0.0-1.3); Monocytes % 11.4 %; Neutrophils # 4.5 K/mcL (1.6-8.9); Platelet Count 393 K/mcL (140-400); Red Blood Count 4.55 M/mcL (4.19-5.50); Red Cell Distribution Width 16.4 % (11.5-14.5); Segmented Neutrophils % 55.8 %; White Blood Count 8.1 K/mcL (4.3-11.1)
[2020-10-31 13:25] LABS: BUN/Creatinine Ratio 12 (6-26); Blood Urea Nitrogen 11 mg/dL (6-20); Calcium 9.3 mg/dL (8.6-10.3); Carbon Dioxide 27 mEq/L (23-29); Chloride 105 mEq/L (98-107); Glucose 95 mg/dL (70-105); Osmolality,Calculated 287 (280-300); Potassium 3.9 mEq/L (3.5-5.1); Sodium 139 mEq/L (136-145); eGFR For African Americans > 60 (> 60); eGFR For Non-African Americans > 60 (> 60)
[2020-10-31] MEDS ORDERED: Ondansetron 4 MG/2 ML VIAL IVP PRN (14:42)
[2020-10-31] MEDS ORDERED: Naloxone 0.4 MG/ML INJ IVP PRN (14:42)
[2020-10-31] MEDS ORDERED: Dextrose Gel 15 GM/37.5 ML TUBE PO PRN ×2 (15:08)
[2020-10-31] MEDS ORDERED: *HR* Dextrose 50 % in Water (Vial) 50 ML VIAL IVP PRN (15:08)
[2020-10-31] MEDS ORDERED: D5% in Water 1,000 ML IVC PRN (15:08)
[2020-10-31] MEDS ORDERED: (Rizatriptan Benzoate [Maxalt] 10 MG Tablet) PO PRN (15:31)
[2020-10-31] MEDS: Insulin LISPRO 300 UNITS/3 ML VIAL SUBQ SCH (16:56)
[2020-10-31] MEDS: carvediloL 6.25 MG TABLET PO SCH (17:18)
[2020-10-31] MEDS ORDERED: Famotidine 20 MG/2 ML VIAL IVP ONE (20:48)
[2020-10-31] MEDS ORDERED: Insulin LISPRO 300 UNITS/3 ML VIAL SUBQ SCH (21:00)
[2020-10-31] MEDS: *HR* Heparin 5,000 UNIT/ML VIAL SQ SCH (21:05)
[2020-10-31] MEDS: Valsartan 80 MG TABLET PO SCH (21:05)
[2020-10-31] MEDS: Fluticasone Propionate Nasal 50 MCG/SPRAY BOTTLE NS SCH (22:20)
[2020-11-01] MEDS: *HR* Heparin 5,000 UNIT/ML VIAL SQ SCH (05:09)
[2020-11-01 06:15] LABS: Basophils % 0.5 %; Eosinophils # 0.2 K/mcL (0.0-0.6); Eosinophils % 2.3 %; Hematocrit 38.9 % (37.5-50.1); Hemoglobin 12.6 g/dL (12.9-16.9); Immature Granulocytes % 0.8 % (0-4); Lymphocytes # 2.4 K/mcL (0.6-4.6); Lymphocytes % 36.5 %; Mean Corpuscular HGB Conc 32.4 g/dL (31.6-35.5); Mean Corpuscular Hemoglobin 27.8 pg (28.0-33.3); Mean Corpuscular Volume 85.9 fL (83.0-100.0); Mean Platelet Volume 8.8 fL (9.4-12.4); Monocytes # 0.7 K/mcL (0.0-1.3); Neutrophils # 3.3 K/mcL (1.6-8.9); Platelet Count 373 K/mcL (140-400); Red Blood Count 4.53 M/mcL (4.19-5.50); Red Cell Distribution Width 16.4 % (11.5-14.5); Segmented Neutrophils % 48.9 %; White Blood Count 6.6 K/mcL (4.3-11.1)
[2020-11-01 06:35] LABS: BUN/Creatinine Ratio 11 (6-26); Blood Urea Nitrogen 10 mg/dL (6-20); Calcium 9.3 mg/dL (8.6-10.3); Carbon Dioxide 28 mEq/L (23-29); Chloride 103 mEq/L (98-107); Glucose 102 mg/dL (70-105); Magnesium 1.9 mg/dL (1.6-2.6); Osmolality,Calculated 285 (280-300); Phosphorous 4.2 mg/dL (2.7-4.5); Sodium 138 mEq/L (136-145); eGFR For African Americans > 60 (> 60); eGFR For Non-African Americans > 60 (> 60)
[2020-11-01 07:43] VITALS: BP 114/82
[2020-11-01] MEDS: Insulin LISPRO 300 UNITS/3 ML VIAL SUBQ SCH (07:59)
[2020-11-01] MEDS: carvediloL 6.25 MG TABLET PO SCH (08:05)
[2020-11-01] MEDS: Valsartan 80 MG TABLET PO SCH (08:05)
[2020-11-01] MEDS: Fluticasone Propionate Nasal 50 MCG/SPRAY BOTTLE NS SCH (08:06)
[2020-11-01] MEDS ORDERED: Aspirin Enteric Coated 81 MG Tablet PO SCH (09:00)
== END 2020-11-01 09:50 | disposition home or self-care (01) ==
LOC: 3BNU 12:11 → EMEROOARM 12:11 → SUATTDRO 15:02 → 3BNU 15:32
PROVIDERS: ADMIT Student in an Organized Health Care Education/Training Program; ATTEND Family Medicine

== ENCOUNTER 2022-03-16 19:09 | Inpatient (IN) ==
[2022-03-16 20:11] LABS: Basophils % 0.3 %; Eosinophils % 0.3 %; Hemoglobin 13.9 g/dL (12.9-16.9); Immature Granulocytes % 0.2 % (0-4); Lymphocytes # 1.5 K/mcL (0.6-4.6); Lymphocytes % 13.1 %; Mean Corpuscular HGB Conc 33.1 g/dL (31.6-35.5); Mean Corpuscular Hemoglobin 26.5 pg (28.0-33.3); Mean Corpuscular Volume 80.2 fL (83.0-100.0); Mean Platelet Volume 8.9 fL (9.4-12.4); Monocytes # 0.9 K/mcL (0.0-1.3); Monocytes % 8.1 %; Neutrophils # 8.7 K/mcL (1.6-8.9); Platelet Count 295 K/mcL (140-400); Red Blood Count 5.24 M/mcL (4.19-5.50); Red Cell Distribution Width 14.3 % (11.5-14.5); White Blood Count 11.2 K/mcL (4.3-11.1)
[2022-03-16 20:16] LABS: Bacteria,Urine Few per hpf (None-Few); Bilirubin,Urine Negative (Negative); Blood,Urine Large (Negative); Clarity,Urine Ex.Turbid (Clear); Color,Urine Yellow (Yellow); Glucose,Urine (UA) 70 mg/dL (Normal); Ketones,Urine 10 mg/dL (Negative); Leukocyte Esterase,Urine Moderate (Negative); Mucus,Urine Moderate per lpf (None-Few); Nitrite,Urine Negative (Negative); Protein,Urine 100 mg/dL (Neg-Trace); RBC,Urine 15-30 per hpf (0-3); Specific Gravity,Urine > 1.030 (1.010-1.025); Squamous Epithelial Cell,Urine Few per hpf (None-Few); WBC,Urine 50-100 per hpf (0-3)
[2022-03-16 20:27] LABS: Albumin 3.9 g/dL (3.5-5.7); Albumin/Globulin Ratio 0.9 (1.1-2.2); Bilirubin,Direct 0.2 mg/dL (0.0-0.2); Bilirubin,Total 1.2 mg/dL (0.3-1.0); Calcium 9.2 mg/dL (8.6-10.3); Globulin 4.2 g/dL (2.4-3.5); Potassium 3.5 mEq/L (3.5-5.1); Total Protein 8.1 g/dL (6.4-8.9)
[2022-03-16] MEDS ORDERED: Iopamidol - 370 500 ML MLS IVP ONE (21:46)
[2022-03-16] MEDS ORDERED: 0.9 % Sodium Chloride 1,000 ML IVC ONE ×2 (22:50→23:09)
[2022-03-17] MEDS ORDERED: Piperacillin/Tazobactam 3.375 GM in 0.9 % Sodium Chloride Mini Bag 100 ML IVPB ONE (02:00)
[2022-03-17] MEDS ORDERED: Ondansetron 4 MG/2 ML VIAL IVP PRN (02:04)
[2022-03-17] MEDS ORDERED: Naloxone 0.4 MG/ML INJ IVP PRN (02:04)
[2022-03-17] MEDS ORDERED: Melatonin 3 MG TABLET PO PRN (02:04)
[2022-03-17] MEDS ORDERED: Ringers Solution, Lactated 1,000 ML IVC SCH (02:15)
[2022-03-17 05:52] LABS: Basophils % 0.5 %; Eosinophils % 0.5 %; Immature Granulocytes % 0.3 % (0-4); Lymphocytes # 1.7 K/mcL (0.6-4.6); Lymphocytes % 22.8 %; Mean Corpuscular HGB Conc 32.4 g/dL (31.6-35.5); Mean Corpuscular Hemoglobin 26.3 pg (28.0-33.3); Monocytes # 0.9 K/mcL (0.0-1.3); Monocytes % 11.5 %; Neutrophils # 4.9 K/mcL (1.6-8.9); Platelet Count 247 K/mcL (140-400); Red Blood Count 4.57 M/mcL (4.19-5.50); Red Cell Distribution Width 14.5 % (11.5-14.5); Segmented Neutrophils % 64.4 %; White Blood Count 7.6 K/mcL (4.3-11.1)
[2022-03-17 06:10] LABS: Albumin 3.3 g/dL (3.5-5.7); Bilirubin,Total 0.9 mg/dL (0.3-1.0); Calcium 7.9 mg/dL (8.6-10.3); Globulin 3.4 g/dL (2.4-3.5); Phosphorous 2.7 mg/dL (2.7-4.5); Potassium 3.4 mEq/L (3.5-5.1); Total Protein 6.7 g/dL (6.4-8.9)
[2022-03-17] MEDS: Piperacillin/Tazobactam 3.375 GM in 0.9 % Sodium Chloride Mini Bag 100 ML IVPB SCH ×2 (10:56→17:58)
[2022-03-17] MEDS ORDERED: Simethicone 80 MG TAB.CHEW PO PRN (11:42)
[2022-03-17] MEDS: QUEtiapine Fumarate 25 MG TABLET PO SCH (21:12)
[2022-03-17] MEDS: Valsartan 80 MG TABLET PO SCH (21:15)
[2022-03-17] MEDS: Acetaminophen 325 MG TABLET PO PRN (22:13)
[2022-03-18] MEDS: Piperacillin/Tazobactam 3.375 GM in 0.9 % Sodium Chloride Mini Bag 100 ML IVPB SCH ×3 (03:34→17:13)
[2022-03-18 04:55] LABS: Basophils % 0.6 %; Eosinophils # 0.3 K/mcL (0.0-0.6); Eosinophils % 4.6 %; Hematocrit 39.6 % (37.5-50.1); Hemoglobin 12.5 g/dL (12.9-16.9); Immature Granulocytes % 0.2 % (0-4); Lymphocytes % 36.5 %; Mean Corpuscular HGB Conc 31.6 g/dL (31.6-35.5); Mean Corpuscular Hemoglobin 26.2 pg (28.0-33.3); Mean Corpuscular Volume 82.8 fL (83.0-100.0); Monocytes # 0.7 K/mcL (0.0-1.3); Monocytes % 13.7 %; Neutrophils # 2.4 K/mcL (1.6-8.9); Platelet Count 256 K/mcL (140-400); Red Blood Count 4.78 M/mcL (4.19-5.50); Red Cell Distribution Width 14.5 % (11.5-14.5); Segmented Neutrophils % 44.4 %; White Blood Count 5.4 K/mcL (4.3-11.1)
[2022-03-18 05:24] LABS: Calcium 8.6 mg/dL (8.6-10.3); Magnesium 2.1 mg/dL (1.6-2.6)
[2022-03-18] MEDS: Valsartan 80 MG TABLET PO SCH ×2 (08:52→19:59)
[2022-03-18] MEDS: Aspirin Enteric Coated 81 MG Tablet PO SCH (08:53)
[2022-03-18] MEDS: QUEtiapine Fumarate 25 MG TABLET PO SCH (20:00)
[2022-03-19] MEDS: Piperacillin/Tazobactam 3.375 GM in 0.9 % Sodium Chloride Mini Bag 100 ML IVPB SCH ×2 (02:09→09:19)
[2022-03-19] MEDS ORDERED: *HR* Enoxaparin 40 MG/0.4 ML SYRINGE SQ SCH (06:00)
[2022-03-19 08:41] LABS: Hematocrit 40.2 % (37.5-50.1); Hemoglobin 12.8 g/dL (12.9-16.9); Mean Corpuscular HGB Conc 31.8 g/dL (31.6-35.5); Mean Corpuscular Hemoglobin 25.9 pg (28.0-33.3); Mean Corpuscular Volume 81.4 fL (83.0-100.0); Mean Platelet Volume 9.1 fL (9.4-12.4); Platelet Count 297 K/mcL (140-400); Red Blood Count 4.94 M/mcL (4.19-5.50); Red Cell Distribution Width 14.5 % (11.5-14.5); White Blood Count 5.2 K/mcL (4.3-11.1)
[2022-03-19] MEDS: Aspirin Enteric Coated 81 MG Tablet PO SCH (09:18)
[2022-03-19] MEDS: Acetaminophen 325 MG TABLET PO PRN (09:33)
[2022-03-19] MEDS: Valsartan 80 MG TABLET PO SCH (09:33)
[2022-03-19 10:05] LABS: Calcium 8.8 mg/dL (8.6-10.3); Potassium 3.9 mEq/L (3.5-5.1)
[2022-03-19 11:46] VITALS: BP 125/92; PULSE 67; TEMP 97.9; O2SAT 99
== END 2022-03-19 13:30 | disposition home or self-care (01) | DRG 689 ==
LOC: EMEROOARM 19:09 → 2NNU 19:09 → EMEROOARM 03-17 00:14 → 2NNU 03-17 03:10 → 3ANU 03-18 16:02
PROVIDERS: ADMIT Student in an Organized Health Care Education/Training Program; ATTEND Student in an Organized Health Care Education/Training Program